=== PATIENT | female | born 1960 | race Caucasian/White ===

== ENCOUNTER → 2018-03-28 | Outpatient (CLI) | payer OTHER | LOC: BMCIMAGING 09:38 | PROVIDERS: ATTEND Internal Medicine | DX: M25.531 Pain in right wrist (principal); M25.532 Pain in left wrist ==

== ENCOUNTER 2018-11-25 17:41 | Emergency (ER) | payer OTHER ==
[2018-11-25] MEDS ORDERED: KETOROLAC 30 MG/1 ML SDV IVP ONE (18:06)
[2018-11-25] MEDS ORDERED: NS 1,000 ML IV ONE (18:06)
[2018-11-25] MEDS ORDERED: DEXAMETHASONE 10 MG/ML VIAL IVP ONE (18:06)
[2018-11-25] MEDS ORDERED: METOCLOPRAMIDE 10 MG/2 ML VIAL IVP ONE (18:06)
--- NOTE | 2018-11-25 18:22 | EDPHY ---
General - History Smoking Status: Never smoked Time Seen by Provider: 11/25/18 17:50 Narrative: CLINICAL IMPRESSION: Migraine headache ASSESSMENT/PLAN: 58-year-old female with past medical history of migraines presents to the emergency department with a gradual onset, holocranial, 6/10 headache that began over 2 days ago while on a flight back to the [place] from [place]. No associated dizziness, vertigo, neck pain or stiffness, fever or chills, acute vision or hearing change. No thunderclap headache. She describes this as a typical migraine. She has no focal neurological deficits on exam. She received IV analgesics and fluids with improvement in her pain. On reassessment she remains neurologically intact. She tolerated crackers and water and is requesting discharge home. I encouraged PCP follow-up in 24-48 hours, low threshold for return to ED sooner as outlined in discharge papers. DIFFERENTIAL DX: Differential diagnosis for headache includes but not limited to subarachnoid hemorrhage, migraine headache, migraine variant headache, tension headache and infectious causes such as meningitis, pharyngitis and sinusitis. ED PROCEDURES: See lab and/or imaging results below ED COURSE: 6:30 P.M.: Patient reassessed, states her headache is now 4/10, still has IV fluid remaining. Will give 20 more minutes and reassessed. Patient is asking when she can go home. 6:50 p.m.: Patient reassessed. Asking to go home. States her headache is improved. Remains without focal neurological deficits. Encouraged PCP follow- up in 24-48 hours for recheck. CHIEF COMPLAINT: Migraine headache HPI: 58-year-old female with history of migraines, presents to the emergency department with complaints of a gradual onset holocranial headache that began slowly during a flight from [place] 2 days ago. Patient arrived back in the [place] early yesterday morning. Since that time she has been treating her headache with ibuprofen. She currently rates her headache 6/10. She does have associated nausea and vomiting. She reports this feels like a typical migraine headache. No thunderclap headache. No associated acute vision changes, tinnitus, hearing loss, dizziness, vertigo, neck pain or stiffness. No recent chiropractic adjustment, deep tissue massage or neck injury. She has a very distant history of breast cancer treated over 20 years ago. She does not require prescription medications for her migraines and states usually ibuprofen helps. She admits that she has had nausea and vomiting with her migraines. She denies photophobia but does have phonophobia. No history of head trauma. No recent illness, fever or chills. PAST MEDICAL HISTORY: Migraines, breast cancer 20 years ago See nurse/triage notes for additional history if applicable Pertinent Past Surgical History: Reported history of eye surgery Family History: Noncontributory Social History: Otherwise healthy REVIEW OF SYSTEMS: All other systems negative Constitutional: No fever, no chills, appetite change. Eyes: No discharge, vision change ENT: No sore throat, congestion, ear pain. Cardiovascular: No chest pain, no palpitations. Respiratory: No cough, no shortness of breath. Gastrointestinal: No abdominal pain, positive for nausea and vomiting, diarrhea. Genitourinary: No hematuria, dysuria, flank pain, pelvic pain Musculoskeletal: No back pain, no neck pain, joint swelling, joint pain, myalgias. Skin: No rashes, color change. Neurological: Positive for headache, no dizziness, weakness. PHYSICAL EXAM: General Appearance: Alert, oriented, appropriate, cooperative, reports 6/10 pain, well hydrated, non-toxic appearing, VSS, no hypoxia. HEENT: TMs are clear bilaterally no perforation or FB, no injection, no evidence of serous or mucopurulent otitis. Oropharynx clear is no erythema or exudates, no tonsillar hypertrophy or asymmetry. Dentition without abnormality. Eyes: PERRLA, no acute vision change, nystagmus, swelling, discharge, pain or photosensitivity. Conjunctiva pink, no pallor or injection Neck: Supple, nontender, no lymphadenopathy, no midline pain, FROM, no meningismus. Respiratory: There are no retractions, lungs are clear to auscultation. Cardiac: Regular rate and rhythm, no murmurs or gallops. Gastrointestinal: [Abdomen is soft, nontender Neurological: Alert and oriented x 3, CN 2-12 grossly intact, normal gait no ataxia, DTR's intact, normal sensation and strength. No focal neurological deficits Skin: Warm, dry, no rashes, no nodules on palpation. Musculoskeletal: Extremities are symmetrical, full range of motion, no tenderness, deformity, swelling, or erythema. MEDICAL DECISION MAKING: Patient was seen independently. Secondary supervising physician at time of evaluation was Dr. Bright. Diagnosis: Non intractable migraine headache without aura . New, requires workup Summary: See Assessment and Plan for summary of ED visit Clinical lab tests: Not obtained Independent visualization of images, tracing, or specimens: Not obtained Patient Progress: Improved. (Bryn Johnson) Discussion: The patient was evaluated and managed by the Physician Machine Specialist. My co- signature indicates that I have reviewed this chart and I agree with the findings and plan of care as documented. I am the secondary supervising physician. (Virgen Bright) - Objective Vital Signs: Initial Vital Signs Temperature (C) 36.7 C 11/25/18 17:46 Heart Rate 79 11/25/18 17:46 Respiratory Rate 16 11/25/18 17:46 Blood Pressure 143/89 H 11/25/18 17:46 O2 Sat (%) 96 11/25/18 17:46 O2 Delivery Mode Room Air Allergies/Adverse Reactions: No Known Allergies Allergy (Verified 11/25/18 17:46) Home Medications: Medication Instructions Recorded Metoprolol Tartrate 25 mg PO BID PRN #30 tablet 07/29/11 No Medications [NO HOME 1 ea MIS 07/29/11 MEDICATIONS] Medications Given: Discontinued Medications Dexamethasone (Decadron Injection) 10 mg IVP EDNOW ONE Stop: 11/25/18 18:07 Last Admin: 11/25/18 18:13 Dose: 10 mg Diphenhydramine HCl (Benadryl Injection) 25 mg IVP EDNOW ONE Stop: 11/25/18 18:07 Last Admin: 11/25/18 18:14 Dose: 25 mg Erythromycin (Erythromycin 0.5%) 1 pricilla EACHEYE ONCE ONE Stop: 11/25/18 18:57 Last Admin: 11/25/18 19:01 Dose: Not Given Sodium Chloride (Ns) 1,000 mls @ 0 mls/hr IV ONCE ONE; Wide Open PRN Reason: Protocol Stop: 11/25/18 18:07 Last Admin: 11/25/18 18:12 Dose: 1,000 mls Ketorolac Tromethamine (Toradol) 15 mg IVP EDNOW ONE Stop: 11/25/18 18:07 Last Admin: 11/25/18 18:13 Dose: 15 mg Metoclopramide HCl (Reglan Injection) 10 mg IVP EDNOW ONE Stop: 11/25/18 18:07 Last Admin: 11/25/18 18:13 Dose: 10 mg Departure - Departure Disposition: Home, Routine, Self-Care Clinical Impression: Migraine Condition: Fair Instructions: Migraine Headache (ED) Additional Instructions: DISCHARGE INSTRUCTIONS FROM YOUR DOCTOR Thank you for visiting our emergency department today. Please keep in mind that discharge from the emergency department does not mean that there is nothing wrong - it simply means that we have not identified an emergency condition that requires further evaluation or treatment in the hospital. You should always plan to follow up with primary care for re-evaluation of your condition in the next 2-3 days. If you have been referred to a specialist, please call as soon as possible (today or tomorrow) to schedule your follow up appointment at the appropriate time. YOU WERE TREATED WITH IV DEXAMETHASONE, REGLAN, BENADRYL AND TORADOL TONIGHT FOR YOUR HEADACHE. YOU ALSO RECEIVED A LITER OF FLUIDS. PLEASE MAKE A FOLLOWUP APPOINTMENT WITH YOUR PRIMARY CARE DOCTOR THIS WEEK TO RECHECK. RETURN TO THE ER FOR WORSENING OR RETURN OF HEADACHE, SUDDEN ONSET HEADACHE OR WORST HEADACHE OF YOUR LIFE, SUDDEN CHANGES TO VISION OR HEARING, DIZZINESS, VERTIGO, NECK PAIN, TROUBLE WALKING, SLURRED SPEECH, EXTREMITY WEAKNESS, FEVER OR ANY OTHER CONCERNS. People present with illnesses and injuries in different ways, and it is always possible that we have missed something. You may always return for re-evaluation if symptoms worsen or if they are not improving or if you develop new/different symptoms. Again, thank you for choosing our emergency department. We hope that you feel better. Referrals: Omar Avila MD [Primary Care Provider] - 1-2 days without fail
[2018-11-25 18:44] VITALS: BP 136/88
[2018-11-25] MEDS ORDERED: ERYTHROMYCIN 0.5% 1 GM OPHT.OINT EACHEYE ONE (18:56)
== END 2018-11-25 19:02 | disposition home or self-care (01) ==
DX: G43.909 Migraine, unspecified, not intractable, without status migrainosus (principal); E86.9 Volume depletion, unspecified
CPT/HCPCS: 96374; J1100; J1200; J1885; J2765